=== PATIENT | female | born 1975 | race Caucasian/White ===

== ENCOUNTER 2021-04-11 19:26 | Inpatient (IN) ==
[2021-04-11] MEDS ORDERED: Lidocaine/EPI 1:100k 1% 20 ML VIAL INFILT ONE (19:41)
[2021-04-11 19:55] LABS: Bilirubin,Urine Negative (Negative); Blood,Urine Large (Negative); Clarity,Urine Clear (Clear); Color,Urine Colorless (Yellow); Glucose,Urine (UA) Normal (Normal); Ketones,Urine Negative (Negative); Leukocyte Esterase,Urine Negative (Negative); Nitrite,Urine Negative (Negative); Protein,Urine Negative (Neg-Trace); Specific Gravity,Urine 1.005 (1.010-1.025); Squamous Epithelial Cell,Urine Few per hpf (None-Few); Urobilinogen,Urine Normal (Normal); WBC,Urine 0-3 per hpf (0-3)
[2021-04-11 20:15] LABS: Amphetamine Screen,Urine Negative ng/mL (Cutoff=1000); Barbiturate Screen,Urine Negative ng/mL (Cutoff=200); Benzodiazepines Screen,Urine Negative ng/mL (Cutoff=200); Cannabinoid Screen,Urine Negative ng/mL (Cutoff = 50); Cocaine Screen,Urine Negative ng/mL (Cutoff= 300); Opiate Screen,Urine Negative ng/mL (Cutoff=300); Phencyclidine Screen,Urine Negative ng/mL (Cutoff=25)
[2021-04-11 20:16] LABS: Basophils # 0.1 K/mcL (0.0-0.2); Basophils % 1.3 %; Eosinophils # 0.3 K/mcL (0.0-0.6); Eosinophils % 4.5 %; Hematocrit 45.8 % (35.3-44.9); Hemoglobin 15.4 g/dL (11.5-15.4); Immature Granulocytes % 0.5 % (0-4); Lymphocytes % 32.1 %; Mean Corpuscular HGB Conc 33.6 g/dL (31.6-35.5); Mean Corpuscular Hemoglobin 31.6 pg (28.0-33.3); Mean Corpuscular Volume 93.9 fL (83.0-100.0); Mean Platelet Volume 9.7 fL (9.4-12.4); Monocytes # 0.2 K/mcL (0.0-1.3); Monocytes % 3.9 %; Neutrophils # 3.6 K/mcL (1.6-8.9); Platelet Count 319 K/mcL (140-400); Red Blood Count 4.88 M/mcL (3.82-4.97); Red Cell Distribution Width 12.7 % (11.5-14.5); Segmented Neutrophils % 57.7 %; White Blood Count 6.2 K/mcL (4.3-11.1)
[2021-04-11 20:26] LABS: Acetaminophen < 10 mcg/mL (10-20); Alanine Aminotransferase 34 Units/L (7-52); Albumin 5.1 g/dL (3.5-5.7); Albumin/Globulin Ratio 1.6 (1.1-2.2); Alkaline Phosphatase 110 Units/L (34-104); Aspartate Amino Transferase 39 Units/L (13-39); BUN/Creatinine Ratio 11 (6-26); Bilirubin,Direct 0.1 mg/dL (0.0-0.2); Bilirubin,Indirect 0.2 mg/dL (0.0-1.0); Bilirubin,Total 0.3 mg/dL (0.3-1.0); Blood Urea Nitrogen 8 mg/dL (6-20); Calcium 9.2 mg/dL (8.6-10.3); Carbon Dioxide 26 mEq/L (23-29); Chloride 105 mEq/L (98-107); Ethanol 240 mg/dL (Less than 10); Globulin 3.2 g/dL (2.4-3.5); Glucose 103 mg/dL (70-105); Osmolality,Calculated 289 (280-300); Salicylate < 2.5 mg/dL (15.0-30.0); Sodium 140 mEq/L (136-145); Total Protein 8.3 g/dL (6.4-8.9); eGFR For African Americans > 60 (> 60); eGFR For Non-African Americans > 60 (> 60)
[2021-04-12 05:43] LABS: Influenza A PCR Negative (Negative); Influenza B PCR Negative (Negative); Resp. Syncytial Virus PCR Negative (Negative)
[2021-04-12 05:46] LABS: SARS-CoV-2 by PCR (In House) Negative (Negative)
[2021-04-12] MEDS ORDERED: Ibuprofen 400 MG TABLET PO PRN (05:54)
[2021-04-12] MEDS ORDERED: Haloperidol Lactate 5 MG/ML VIAL IM PRN (05:54)
[2021-04-12] MEDS ORDERED: Acetaminophen 325 MG TABLET PO PRN (05:54)
[2021-04-12] MEDS ORDERED: *HR* LORazepam 1 MG TABLET PO PRN ×2 (05:54→14:50)
[2021-04-12] MEDS ORDERED: haloperidoL 5 MG TABLET PO PRN (05:54)
[2021-04-12] MEDS ORDERED: *HR* LORazepam 2 MG/ML VIAL IM PRN (05:54)
[2021-04-12] MEDS: hydrOXYzine pamoate 25 MG CAPSULE PO PRN (06:33)
[2021-04-12] MEDS ORDERED: Nicotine 14 MG PATCH.TD24 TD SCH (11:30)
[2021-04-12] MEDS ORDERED: Folic Acid 1 MG TABLET PO SCH (11:30)
[2021-04-12] MEDS ORDERED: Thiamine (B-1) 100 MG TABLET PO SCH (11:30)
[2021-04-12] MEDS: Multivit/Ca/Min/Fe/FA 1 TAB TABLET PO SCH (14:18)
[2021-04-12] MEDS: Thiamine (B-1) 100 MG TABLET PO SCH (14:18)
[2021-04-12] MEDS: Folic Acid 1 MG TABLET PO SCH (14:18)
[2021-04-12] MEDS: Nicotine 14 MG PATCH.TD24 TD SCH (14:19)
[2021-04-12] MEDS: Ibuprofen 600 MG TABLET PO PRN (15:03)
[2021-04-12] MEDS ORDERED: *HR* LORazepam 1 MG TABLET PO ONE (15:15)
[2021-04-12] MEDS: Ondansetron ODT 4 MG TAB.RAPDIS SL PRN (20:46)
[2021-04-12] MEDS: *HR* LORazepam 1 MG TABLET PO SCH (21:29)
[2021-04-13] MEDS: Folic Acid 1 MG TABLET PO SCH (07:55)
[2021-04-13] MEDS: *HR* LORazepam 1 MG TABLET PO SCH ×2 (07:55→20:29)
[2021-04-13] MEDS: Thiamine (B-1) 100 MG TABLET PO SCH (07:55)
[2021-04-13] MEDS: Ondansetron ODT 4 MG TAB.RAPDIS SL PRN ×2 (07:55→16:59)
[2021-04-13] MEDS: Multivit/Ca/Min/Fe/FA 1 TAB TABLET PO SCH (07:55)
[2021-04-13] MEDS: Nicotine 14 MG PATCH.TD24 TD SCH (07:56)
[2021-04-13] MEDS ORDERED: Multivit/Ca/Min/Fe/FA 1 TAB TABLET PO SCH (09:00)
[2021-04-13] MEDS ORDERED: lamoTRIgine 25 MG TABLET PO SCH (13:15)
[2021-04-13] MEDS: hydrOXYzine pamoate 25 MG CAPSULE PO PRN (16:59)
[2021-04-13] MEDS: *HR* LORazepam 1 MG TABLET PO PRN ×2 (17:06→18:33)
[2021-04-13] MEDS ORDERED: *HR* LORazepam 1 MG TABLET PO STA (17:45)
[2021-04-13] MEDS ORDERED: *HR* LORazepam 1 MG TABLET PO PRN (17:52)
[2021-04-13] MEDS ORDERED: *HR* LORazepam 1 MG TABLET PO ONE ×2 (20:20→21:00)
[2021-04-13] MEDS: Ibuprofen 600 MG TABLET PO PRN (20:30)
[2021-04-14] MEDS ORDERED: *HR* LORazepam 0.5 MG TABLET PO ONE (00:41)
[2021-04-14] MEDS: Ibuprofen 600 MG TABLET PO PRN (07:12)
[2021-04-14] MEDS: *HR* LORazepam 1 MG TABLET PO SCH (08:37)
[2021-04-14] MEDS: Thiamine (B-1) 100 MG TABLET PO SCH (08:37)
[2021-04-14] MEDS: *HR* LORazepam 1 MG TABLET PO PRN (08:37)
[2021-04-14] MEDS: Folic Acid 1 MG TABLET PO SCH (08:38)
[2021-04-14] MEDS: Multivit/Ca/Min/Fe/FA 1 TAB TABLET PO SCH (08:38)
[2021-04-14] MEDS: Nicotine 14 MG PATCH.TD24 TD SCH (08:44)
[2021-04-14 09:00] VITALS: BP 154/98; PULSE 85; TEMP 98; O2SAT 98
[2021-04-14] MEDS ORDERED: *HR* LORazepam 1 MG TABLET PO SCH ×2 (09:00→14:00)
[2021-04-14] MEDS ORDERED: *HR* LORazepam 1 MG TABLET PO PRN (09:33)
== END 2021-04-14 14:15 | disposition home or self-care (01) | DRG 897 ==
LOC: EMEROOARM 19:26 → 1ANU 04-12 05:53
PROVIDERS: ADMIT Psychiatry & Neurology Psychiatry; ATTEND Psychiatry & Neurology Psychiatry